=== PATIENT | female | born 1985 | race Caucasian/White ===

== ENCOUNTER 2021-02-06 18:17 | Emergency (ER) | payer BC, SELFPAY ==
[2021-02-06 18:31] VITALS: BP 121/69; PULSE 84; RESP 16; TEMP 37.2; O2SAT 99
--- NOTE | 2021-02-06 18:32 | ED.URI ---
HPI - URI/Sore Throat General Chief Complaint: Upper Respiratory Infection Stated Complaint: sinus infection Time Seen by Provider: 02/06/21 18:42 Source: patient Mode of arrival: ambulatory Limitations: no limitations History of Present Illness HPI Narrative: Kathy Ontiveros is a 35 yo female with a PMH of GERD, depression, [facility] with complaints of right ear pain. She has just completed a prescription for Augmentin for sinusitis and as soon as she finished that prescription the symptoms started to return. She has been continuing to use Flonase; she currently is here for her right ear pain and states that he feels very congested and she has recurrent ear infections in that ear Related Data Home Medications Medication Instructions Recorded Confirmed Flonase 02/06/21 Nexplanon 02/06/21 ergocalciferol (vitamin D2) 02/06/21 escitalopram oxalate 02/06/21 omeprazole 02/06/21 Allergies Allergy/AdvReac Type Severity Reaction Status Date / Time morphine Allergy Hives Verified 02/06/21 18:45 Review of Systems Review of Systems: CONSTITUTIONAL: Denies fever, chills, sweats. EYES: Denies visual changes, redness, discharge. ENT: Denies rhinorrhea, congestion, sore throat, right otalgia. CARDIOVASCULAR: Denies chest pain, palpitations, edema. RESPIRATORY: Denies dyspnea, wheezing, cough GASTROINTESTINAL: Denies abdominal pain, nausea, vomiting, diarrhea. GENITOURINARY: Denies dysuria, hematuria, abnormal discharge SKIN: Denies rash or itching. NEUROLOGIC: Denies numbness, or focal weakness. PSYCHIATRIC: Denies anxiety or depression. PMFSH Past Medical History Medical History Depression GERD (gastroesophageal reflux disease) Social History Social History (Updated 02/06/21 @ 18:53 by Anjana Devi CNP) Smoking status: Never smoker Alcohol intake: current Comments At time of signature, I agree with nursing past medical, surgical, social and family history. There is no relevant family history pertinent to the presenting complaint. Exam Narrative: GENERAL: This is a well-nourished, well-developed patient, in mild distress. HEAD: normocephalic, atraumatic. EYES: Sclera clear/white. Vision is grossly intact. EARS: External ears normal, auditory canals erythema and without drainage, with fluid behind TMs the right side more bulging. hearing grossly intact. NOSE: External nose normal without nasal discharge, nares without redness, no rhinorrhea. THROAT: Mucous membranes moist, posterior pharynx erythema NECK: Neck supple, CARDIOVASCULAR: Regular rate and rhythm without murmurs, gallops, or rubs. RESPIRATORY: Clear to auscultation. Breath sounds equal bilaterally. No wheezes, rales, or rhonchi. GASTROINTESTINAL: Abdomen soft, SKIN: warm, intact with no suspicious lesions or rash, good texture and turgor. NEURO: awake, alert, and oriented to person, place and time. There were no obvious focal neurologic abnormalities. Steady gait EXTREMITIES: Normal range of motion. BACK: Nontender without deformity Course Course Emergency Course: [facility] with recurrent symptoms of sinusitis mostly days after completing course of Augmentin she believes that she still has sinusitis and we discussed the likelihood that this is more viral in nature however your ear infection is a separate issue and will be treated with eardrops Started on oral steroids after discussion with patient about sinus congestion and polymyxin she will also take Zyrtec [place] Vital Signs Vital signs: Vital Signs Temperature 99.0 F 02/06/21 18:31 Pulse Rate 84 02/06/21 18:31 Respiratory Rate 16 02/06/21 18:31 Blood Pressure 121/69 02/06/21 18:31 Pulse Oximetry 99 02/06/21 18:31 Temperature 99.0 F 02/06/21 18:47 Pulse Rate 84 02/06/21 18:47 Respiratory Rate 16 02/06/21 18:47 Blood Pressure
[2021-02-06 18:47] VITALS: BP 121/69; PULSE 84; RESP 16; TEMP 37.2; O2SAT 99
== END 2021-02-06 19:00 | disposition home or self-care (01) ==
PROVIDERS: Emergency Provider Nurse Practitioner
DX: H66.001 Acute suppurative otitis media without spontaneous rupture of ear drum, right ear (principal); J01.11 Acute recurrent frontal sinusitis; F32.9 Major depressive disorder, single episode, unspecified; K21.9 Gastro-esophageal reflux disease without esophagitis
CPT/HCPCS: 99203; G0463